=== PATIENT | female | born 1990 | race African-American/Black ===

== ENCOUNTER 2021-05-07 23:20 | Emergency (ER) | payer MEDICAID ==
[~2021-05-07] VITALS: Ht 157.5 cm; Wt 88.5 kg
[2021-05-07 23:33] VITALS: BP 151/111
[2021-05-07 23:35] VITALS: BP 151/111
--- NOTE | 2021-05-07 23:39 | NUR ---
TO LOBBY TO A/W EVALUATION
--- NOTE | 2021-05-07 23:45 | NUR ---
SEE COMPLETE ASSESSMENT
[2021-05-08] MEDS ORDERED: ONDANSETRON 4 MG ODT PO ONE (01:35)
--- NOTE | 2021-05-08 01:35 | NUR ---
PT EVALUATED BY DR. MIGUEL
[2021-05-08] MEDS ORDERED: ONDA-188 SL (02:29)
== END 2021-05-08 02:49 | disposition home or self-care (01) ==
LOC: MED 23:20
DX: O21.8 Other vomiting complicating pregnancy (principal); Z79.899 Other long term (current) drug therapy
CPT/HCPCS: 81002; 81025; 99283; Q0162